=== PATIENT | male | born 1990 | race African-American/Black ===

== ENCOUNTER 2019-12-18 12:02 | Emergency (ER) | payer MEDICAID, OTHER ==
[~2019-12-18] VITALS: Ht 175.3 cm; Wt 63.5 kg
[2019-12-18] MEDS ORDERED: KETOROLAC 30MG/ML VIAL IV ONE (13:15)
[2019-12-18 13:23] LABS: BASOPHILS % 0.5 % (0.0-2.0); EOSINOPHILS % 3.8 % (0.0-5.0); HEMATOCRIT. 43.3 % (42.0-52.0); HEMOGLOBIN. 14.5 g/dL (14.0-18.0); LYMPHOCYTES % 21.8 % (20.0-50.0); MEAN CORPUSCULAR HEMOGLOBIN 29.6 pg (28.0-32.0); MEAN CORPUSCULAR VOLUME 88.5 fL (80.0-94.0); MEAN PLATELET VOLUME 7.9 fl (7.4-10.4); MONOCYTES % 10.1 % (2.0-8.0); NEUTROPHILS % 63.8 % (40.0-76.0); PLATELET 203 x1000/uL (130-400); RED CELL DISTRIBUTION WIDTH 13.7 % (11.6-14.6)
[2019-12-18 13:25] LABS: CHLORIDE 107 mEq/L (98-107)
[2019-12-18 14:47] VITALS: BP 124/73
== END 2019-12-18 15:13 | disposition home or self-care (01) ==
LOC: ER 12:16
DX: R07.89 Other chest pain (principal); R05 Cough; R11.10 Vomiting, unspecified
CPT/HCPCS: 36415; 71045; 80053; 84484; 85025; 93005; 99285